=== PATIENT | female | born 1975 | race Caucasian/White ===

== ENCOUNTER 2021-11-12 22:37 | Emergency (ER) | payer OTHER ==
[~2021-11-12] VITALS: Ht 147.3 cm; Wt 81.7 kg
--- NOTE | ~2021-11-12 | EKG ---
[facility] [address], [place] [address] Draft EK completed, results pending confirmation PATIENT NAME: AMELIA WATSON Electrocardiogram DATE OF : 71 PHYSICIAN: PRELIMINARY REPORT #: [id number] REPORT IS CONFIDENTIAL AND NOT TO BE RELEASED WITHOUT AUTHORIZATION
[~2021-11-12 22:37] MED LIST: ZOLOFT20 MG/1 ML PO
[2021-11-12] MEDS ORDERED: TRAZODONE HCL50 MG PO (22:57)
[2021-11-12] MEDS ORDERED: AMBIEN10 MG PO (22:58)
== END 2021-11-13 00:57 | disposition left against medical advice (07) ==
LOC: ED 22:37
DX: T42.6X1A Poisoning by other antiepileptic and sedative-hypnotic drugs, accidental (unintentional), initial encounter (principal); G47.00 Insomnia, unspecified; Z79.899 Other long term (current) drug therapy
CPT/HCPCS: 80053; 81001; 84703; 85025; 93005; 93010; 99284-25; G0480